=== PATIENT | male | born 1945 | race Caucasian/White ===

== ENCOUNTER 2019-07-10 09:21 | Day surgery (SDC) | payer MEDICARE, BC ==
[2019-07-10] VITALS (9 sets, daily range): BP systolic 92–139; BP diastolic 48–80
[~2019-07-10] VITALS: Ht 182.9 cm; Wt 82.7 kg
[2019-07-10] MEDS ORDERED: diphenhydrAMINE 25mg capsule PO PRN (09:35)
[2019-07-10] MEDS ORDERED: normal saline 1,000 ML IV SCH (09:35)
[2019-07-10] MEDS ORDERED: CLOP75TA33 PO (09:58)
[2019-07-10] MEDS ORDERED: ESOM40CA PO (09:58)
[2019-07-10] MEDS ORDERED: TRAZ150T78 PO (09:58)
[2019-07-10] MEDS ORDERED: ASPI81TA52 PO (09:58)
[2019-07-10] MEDS ORDERED: NITR0.4T48 SL (09:58)
[2019-07-10] MEDS ORDERED: UMEC1DIS (09:58)
[2019-07-10] MEDS ORDERED: SERT100T10 PO (09:58)
[2019-07-10] MEDS ORDERED: ALBU8.5H8 INH (09:58)
[2019-07-10] MEDS ORDERED: PRAV20TA4 PO (09:58)
[2019-07-10] MEDS ORDERED: LINA145C PO (09:58)
[2019-07-10] MEDS ORDERED: METO50TA7 PO (09:58)
[2019-07-10 10:02] LABS: BASOPHILS # (AUTO) 0.1 X10'3 (0-0.2); EOSINOPHILS # (AUTO) 0.3 X10'3 (0-0.9); EOSINOPHILS % (AUTO) 5.8 % (0-6); HEMATOCRIT 35.3 % (42.0-52.0); HEMOGLOBIN 11.6 g/dl (14.0-17.9); LYMPHOCYTES # (AUTO) 0.9 X10'3 (1.1-4.8); LYMPHOCYTES % (AUTO) 17.6 % (21-51); MEAN CORPUSCULAR HGB CONC 32.9 g/dL (33.0-36.5); MEAN CORPUSCULAR VOLUME 88.1 FL (78-98); MEAN PLATELET VOLUME 7.5 FL (7.4-10.4); MONOCYTES # (AUTO) 0.4 X10'3 (0-0.9); MONOCYTES % (AUTO) 8.5 % (2-12); NEUTROPHILS # (AUTO) 3.4 X10'3 (1.8-7.7); NEUTROPHILS % (AUTO) 67.1 % (42-75); PLATELET COUNT 183 X10'3 (140-440); RED BLOOD COUNT 4.01 X10'6 (4.70-6.10); RED CELL DISTRIBUTION WIDTH 15.3 % (11.5-14.5); WHITE BLOOD COUNT 5.1 X10'3 (4.5-11.0)
[2019-07-10 10:09] LABS: ALBUMIN 3.4 G/DL (3.4-5.0); ANION GAP 10 (8-16); BLOOD UREA NITROGEN 13 MG/DL (7-18); BUN/CREATININE RATIO 12.4 (5.4-32.0); CALCIUM 8.7 MG/DL (8.5-10.1); CHLORIDE 110 MMOL/L (99-107); CREATININE 1.05 MG/DL (0.60-1.10); GLUCOSE 90 MG/DL (70-104); MAGNESIUM 1.8 MG/DL (1.5-2.4); POTASSIUM 3.5 MMOL/L (3.5-5.1); SODIUM 144 MMOL/L (135-145); eGFR 69 ML/MIN
[2019-07-10] MEDS ORDERED: fentaNYL/PF 50MCG/1 ML 2ML syringe ONE (10:11)
[2019-07-10] MEDS ORDERED: midazolam 2 mg/2 ml injection ONE (10:11)
[2019-07-10] MEDS ORDERED: LIDOcaine 1% (10mg/ml)w/preservative injection 20ml MDV ONE (10:11)
[2019-07-10] MEDS ORDERED: iohexol 350 MG/ML 50ML vial IV ONE (10:12)
[2019-07-10] MEDS ORDERED: iohexol 350MG/ML 100ml bottle IV ONE (10:12)
[2019-07-10] MEDS ORDERED: proCHLORperazine 10 MG/2 ml inj ONE (11:04)
[2019-07-10] MEDS ORDERED: heparin 1,000unit/ml 10ml vial 10 ML ONE (11:24)
[2019-07-10] MEDS ORDERED: nitroGLYCERIN-Tridil 50MG/D5W 250 ML IV ONE (11:33)
[2019-07-10] MEDS ORDERED: clopidogrel 300mg tablet ONE (11:36)
[2019-07-10] MEDS ORDERED: acetaminophen 325mg tablet PO PRN (12:20)
[2019-07-10] MEDS ORDERED: HYDROcodone/acetaminophen 5mg/325mg tablet PO PRN (12:20)
[2019-07-10] MEDS ORDERED: ondansetron/PF 4mg/2ml inj IV PRN (12:20)
[2019-07-10] MEDS ORDERED: proCHLORperazine 10 MG/2 ml inj IV PRN (12:20)
[2019-07-10] MEDS ORDERED: HYDROcodone/acetaminophen 10/325mg tab PO PRN (12:20)
== END 2019-07-10 15:05 | disposition home or self-care (01) ==
LOC: SSTAY O 09:21
PROVIDERS: ATTEND Internal Medicine Cardiovascular Disease
DX: I25.118 Atherosclerotic heart disease of native coronary artery with other forms of angina pectoris (principal); E78.5 Hyperlipidemia, unspecified; I10 Essential (primary) hypertension; I45.10 Unspecified right bundle-branch block; F32.9 Major depressive disorder, single episode, unspecified; F43.10 Post-traumatic stress disorder, unspecified; K21.9 Gastro-esophageal reflux disease without esophagitis; I47.1 Supraventricular tachycardia; J44.9 Chronic obstructive pulmonary disease, unspecified; F10.10 Alcohol abuse, uncomplicated; F17.210 Nicotine dependence, cigarettes, uncomplicated; Z85.46 Personal history of malignant neoplasm of prostate; Z98.52 Vasectomy status; Z95.5 Presence of coronary angioplasty implant and graft; Z98.890 Other specified postprocedural states; Z90.79 Acquired absence of other genital organ(s); Z79.82 Long term (current) use of aspirin; Z79.899 Other long term (current) drug therapy; Z98.49 Cataract extraction status, unspecified eye; Z95.0 Presence of cardiac pacemaker; Z89.029 Acquired absence of unspecified finger(s)
CPT/HCPCS: 36415; 80048; 83735; 85025; 85610; 93005; 93458; 99152; 99153; C1769; C1874; C1894; C9600; J0780; J1644; J2001; J2250; J3010; J7030; Q0163; Q9967; A4620; A6258; C1760; J3490

== ENCOUNTER 2020-01-04 09:02 | Day surgery (SDC) | payer MEDICARE, BC ==
[~2020-01-04] VITALS: Ht 182.9 cm; Wt 76.7 kg
[2020-01-04] VITALS (18 sets, daily range): BP systolic 112–171; BP diastolic 64–122
[~2020-01-04 09:02] MED LIST: ALBU8.5H8 INH; ASPI81TA52 PO; CLOP75TA33 PO; DOCUMENT DATE & TIME OF BETA-BLOCKER PO ONE; HYDR-3972 PO; LINA145C PO; METO50TA7 PO; NITR0.4T48 SL; PRAV20TA4 PO; SERT100T10 PO; TRAZ150T78 PO; albuterol 2.5 MG/3 ML nebule NEB ONE; ceFAZolin 2gm in dextrose, iso 50 ML IV ONE; famotidine 20mg tablet PO ONE; ringers solution, lacted 1,000 ML IV SCH
[2020-01-04] MEDS ORDERED: metoprolol tartrate 25mg tablet PO SCH (10:45)
[2020-01-04] MEDS ORDERED: ringers solution, lacted 1,000 ML IV SCH (11:18)
[2020-01-04] MEDS ORDERED: morphine 2 MG/ML inj. syringe IV PRN (11:20)
[2020-01-04] MEDS ORDERED: HYDROmorphone inj. 0.5 MG/0.5 ML DISP.SYRIN IV PRN (11:20)
[2020-01-04] MEDS ORDERED: ondansetron/PF 4mg/2ml inj IV PRN (11:20)
[2020-01-04] MEDS ORDERED: fentaNYL/PF 50MCG/1 ML 2ML syringe ONE ×2 (11:36→12:37)
[2020-01-04] MEDS ORDERED: BUPIVAcaine/PF 2.5 mg/ml (0.25%) 30ml vial ONE (11:55)
[2020-01-04] MEDS ORDERED: LIDOcaine 1% 30ml preserv. free vial ONE (11:55)
[2020-01-04] MEDS ORDERED: propofol inj 20 ML IV ONE (12:19)
[2020-01-04] MEDS ORDERED: ondansetron/PF 4mg/2ml inj ONE (12:19)
[2020-01-04] MEDS ORDERED: LIDOcaine 2% (20mg/ml) 5ml vial ONE (12:19)
[2020-01-04] MEDS ORDERED: glycopyrrolate 0.2mg/ml inj ONE (12:19)
[2020-01-04] MEDS ORDERED: rocuronium 10mg/ml inj IV ONE (12:19)
[2020-01-04] MEDS ORDERED: neostigmine methylsulfate 1 MG/ML 10ml vial ONE (12:19)
[2020-01-04] MEDS ORDERED: dexamethasone sod phosphate 4mg/ml inj. ONE (12:19)
--- NOTE | 2020-01-04 13:23 | NUR ---
Received from OR via [facility] , accompanied by Anesthesiologist JESSIE and report given by Anesthesiolgist. PATIENT WITH 3 ABDOMINAL BANDAIDS PRESENT. ALL CDI. VSS. 10L MASK ON WITH 96% SATURATIONS. MEDICATED FOR PAIN UPON ARRIVAL. Addendum: 01/04/20 at 1340 by Kristian Sarabia RN, RN Amended: Links added.
[2020-01-04] MEDS ORDERED: HYDROcodone/acetaminophen 5mg/325mg tablet PO PRN ×2 (13:30)
[2020-01-04] MEDS: HYDROmorphone inj. 0.5 MG/0.5 ML DISP.SYRIN IV PRN ×3 (13:59→17:44)
--- NOTE | 2020-01-04 18:33 | NUR ---
ALL DC CRITERIA HAS BEEN MET. IV TAKEN OUT WITHOUT COMPLICATIONS. ALL INSTRUCTIONS COVERED AND ALL QUESTIONS ANSWERED. DRESSINGS CDI. OUT VIA WHEELCHAIR TO PERSONAL VEHICLE WHERE PATIENT WAS SECURED IN AND DRIVEN HOME BY FAMILY. PATIENT ABLE TO VOID, AMBULATE AND PRESENT TO TAKE PATIENT HOME. Addendum: 01/04/20 at 1836 by Kristian Sarabia RN, RN Amended: Links added.
== END 2020-01-04 18:33 | disposition home or self-care (01) ==
LOC: PAS 09:02
PROVIDERS: ATTEND Surgery
DX: K40.90 Unilateral inguinal hernia, without obstruction or gangrene, not specified as recurrent (principal); F43.10 Post-traumatic stress disorder, unspecified; I25.10 Atherosclerotic heart disease of native coronary artery without angina pectoris; F41.9 Anxiety disorder, unspecified; F32.9 Major depressive disorder, single episode, unspecified; F17.210 Nicotine dependence, cigarettes, uncomplicated; Z90.79 Acquired absence of other genital organ(s); Z98.890 Other specified postprocedural states; Z85.118 Personal history of other malignant neoplasm of bronchus and lung; Z79.01 Long term (current) use of anticoagulants; Z95.0 Presence of cardiac pacemaker; Z79.899 Other long term (current) drug therapy; Z79.82 Long term (current) use of aspirin; Z85.46 Personal history of malignant neoplasm of prostate; Z80.42 Family history of malignant neoplasm of prostate; Z82.3 Family history of stroke; Z82.49 Family history of ischemic heart disease and other diseases of the circulatory system; Z82.61 Family history of arthritis; Z83.2 Family history of diseases of the blood and blood-forming organs and certain disorders involving the immune mechanism
CPT/HCPCS: 49650; 71046; 82948; 94640; J1100; J1170; J2001; J2270; J2405; J2704; J2710; J3010; J3490; S2900; A4215; A4618; C1781; J7120

== ENCOUNTER 2021-10-20 07:59 | Day surgery (SDC) | payer MEDICARE, BC ==
[~2021-10-20] VITALS: Ht 182.9 cm; Wt 75.6 kg
[2021-10-20] VITALS (8 sets, daily range): BP systolic 122–135; BP diastolic 68–77
[~2021-10-20 07:59] MED LIST changes: +ALBU8.5H17 INH; -ALBU8.5H8 INH; -DOCUMENT DATE & TIME OF BETA-BLOCKER PO ONE; +SERT-434 PO; -SERT100T10 PO; -albuterol 2.5 MG/3 ML nebule NEB ONE; -ceFAZolin 2gm in dextrose, iso 50 ML IV ONE; -famotidine 20mg tablet PO ONE; -ringers solution, lacted 1,000 ML IV SCH
[2021-10-20] MEDS ORDERED: sodium bicarbonate (8.4%) inj. 150 ML in dextrose 5%-water 1,000 ML IV ONE (08:25)
[2021-10-20] MEDS ORDERED: diphenhydrAMINE 25mg capsule PO PRN (08:25)
[2021-10-20] MEDS ORDERED: normal saline 1,000 ML IV SCH (08:25)
[2021-10-20] MEDS ORDERED: ESOM40CA49 PO (08:38)
[2021-10-20] MEDS ORDERED: FERR236T3 PO (08:38)
[2021-10-20] MEDS ORDERED: GABA300S PO (08:38)
[2021-10-20 08:58] LABS: BASOPHILS % (AUTO) 0.7 % (0-1); EOSINOPHILS # (AUTO) 0.3 X10'3 (0-0.9); EOSINOPHILS % (AUTO) 4.3 % (0-6); HEMATOCRIT 37.6 % (42.0-52.0); HEMOGLOBIN 12.8 g/dl (14.0-17.9); LYMPHOCYTES # (AUTO) 1.4 X10'3 (1.1-4.8); LYMPHOCYTES % (AUTO) 19.5 % (21-51); MEAN CORPUSCULAR HEMOGLOBIN 32.9 PG (27.0-31.0); MEAN CORPUSCULAR HGB CONC 34.2 g/dL (33.0-36.5); MEAN CORPUSCULAR VOLUME 96.2 FL (78-98); MEAN PLATELET VOLUME 7.5 FL (7.4-10.4); MONOCYTES # (AUTO) 0.5 X10'3 (0-0.9); MONOCYTES % (AUTO) 7.4 % (2-12); NEUTROPHILS % (AUTO) 68.1 % (42-75); PLATELET COUNT 197 X10'3 (140-440); RED BLOOD COUNT 3.91 X10'6 (4.70-6.10); RED CELL DISTRIBUTION WIDTH 13.3 % (11.5-14.5); WHITE BLOOD COUNT 7.3 X10'3 (4.5-11.0)
[2021-10-20 09:05] LABS: ALBUMIN 3.5 G/DL (3.4-5.0); ANION GAP 8 (8-16); BLOOD UREA NITROGEN 9 MG/DL (7-18); BUN/CREATININE RATIO 8.3 (5.4-32.0); CALCIUM 8.7 MG/DL (8.5-10.1); CHLORIDE 107 MMOL/L (99-107); CREATININE 1.09 MG/DL (0.60-1.10); GLUCOSE 85 MG/DL (70-104); MAGNESIUM 2.1 MG/DL (1.5-2.4); POTASSIUM 3.7 MMOL/L (3.5-5.1); SODIUM 141 MMOL/L (135-145); TOTAL CARBON DIOXIDE 26.4 MMOL/L (24-32); eGFR 66 ML/MIN
[2021-10-20] MEDS ORDERED: midazolam 1 mg/ML 2ml injection ONE ×2 (09:54→11:24)
[2021-10-20] MEDS ORDERED: iohexol 350MG/ML 100ml bottle IV ONE (09:55)
[2021-10-20] MEDS ORDERED: fentaNYL/PF 50MCG/1 ML 2ML syringe ONE (09:55)
[2021-10-20] MEDS ORDERED: LIDOcaine 1% (10mg/ml)w/preservative injection 20ml MDV ONE (09:55)
[2021-10-20] MEDS ORDERED: iohexol 350 MG/ML 50ML vial IV ONE ×4 (09:55→12:50)
[2021-10-20] MEDS ORDERED: heparin 1,000unit/ml 10ml vial 10 ML ONE ×2 (09:55→12:29)
[2021-10-20] MEDS ORDERED: nitroGLYCERIN-Tridil 50MG/D5W 250 ML IV ONE (12:44)
[2021-10-20] MEDS ORDERED: clopidogrel 300mg tablet ONE (13:01)
[2021-10-20] MEDS ORDERED: normal saline 1000ml 1,000 ML IV SCH (13:40)
[2021-10-20] MEDS ORDERED: proCHLORperazine 10 MG/2 ml inj IV PRN (13:40)
[2021-10-20] MEDS ORDERED: ondansetron/PF 4mg/2ml inj IV PRN (13:40)
[2021-10-20] MEDS ORDERED: HYDROcodone/acetaminophen 5mg/325mg tablet PO PRN (13:40)
[2021-10-20] MEDS ORDERED: HYDROcodone/acetaminophen 10/325mg tab PO PRN (13:40)
== END 2021-10-20 16:30 | disposition home or self-care (01) ==
LOC: SSTAY O 07:59
PROVIDERS: ATTEND Internal Medicine Cardiovascular Disease
DX: R94.39 Abnormal result of other cardiovascular function study (principal); I25.118 Atherosclerotic heart disease of native coronary artery with other forms of angina pectoris; I25.5 Ischemic cardiomyopathy; I35.2 Nonrheumatic aortic (valve) stenosis with insufficiency; I45.19 Other right bundle-branch block; I10 Essential (primary) hypertension; E78.5 Hyperlipidemia, unspecified; I47.1 Supraventricular tachycardia; C61 Malignant neoplasm of prostate; I45.9 Conduction disorder, unspecified; K21.9 Gastro-esophageal reflux disease without esophagitis; F17.210 Nicotine dependence, cigarettes, uncomplicated; F10.10 Alcohol abuse, uncomplicated; F43.10 Post-traumatic stress disorder, unspecified; J44.9 Chronic obstructive pulmonary disease, unspecified; F32.9 Major depressive disorder, single episode, unspecified; C34.90 Malignant neoplasm of unspecified part of unspecified bronchus or lung; Z95.5 Presence of coronary angioplasty implant and graft; Z95.2 Presence of prosthetic heart valve; Z98.49 Cataract extraction status, unspecified eye; Z98.890 Other specified postprocedural states; Z95.0 Presence of cardiac pacemaker; Z90.79 Acquired absence of other genital organ(s); Z89.029 Acquired absence of unspecified finger(s); Z79.01 Long term (current) use of anticoagulants; Z79.899 Other long term (current) drug therapy; Z82.3 Family history of stroke; Z82.49 Family history of ischemic heart disease and other diseases of the circulatory system
CPT/HCPCS: 36415; 80048; 83735; 85025; 85610; 93005; 93458; 99152; 99153; C1725; C1751; C1760; C1769; C1874; C1892; C1894; C9600; C9607; J1644; J2250; J3010; J3490; J7030; Q0163; Q9967; A4620; A6258; C9601